=== PATIENT | male | born 1940 | race Hispanic/Latino ===

== ENCOUNTER → 2021-05-29 | Outpatient (CLI) | payer MEDICARE ==
[~2021-05-29] MED LIST: ASPI-556 PO; CYAN100T45 PO; FISH OIL PO; METO50TA18 PO; MVIT PO; SIMV-43 PO; XALA2.5OS OD
== END | disposition home or self-care (01) ==
LOC: SHCH 09:27
PROVIDERS: ATTEND Internal Medicine Cardiovascular Disease
DX: I73.9 Peripheral vascular disease, unspecified (principal)
CPT/HCPCS: 93925